=== PATIENT | female | born 1945 | race Caucasian/White ===

== ENCOUNTER 2023-05-27 20:53 | Observation (INO) | payer BC, OTHER ==
[2023-05-27 21:02] VITALS: BMI 26.6
[2023-05-27 22:27] LABS: INR 0.98 (0.83-1.09); PROTHROMBIN TIME (PATIENT) 11.4 SEC (9.7-13.0)
[2023-05-27 22:28] LABS: HEMATOCRIT 35.6 % (32.4-45.2); HEMOGLOBIN 11.5 GM/dL (10.7-15.3); LYMPH % 20.3 % (8-40); MCH 32.7 pg (25.7-33.7); MCHC 32.2 g/dl (32.0-36.0); MEAN CELL VOLUME 101.6 fl (80-96); MEAN PLT VOLUME 12.6 fl (7.5-11.1); MONO % 8.1 % (3.8-10.2); NEUT % 64.6 % (42.8-82.8); PLATELET COUNT 132 10^3/uL (134-434); RBC 3.51 M/mm3 (3.60-5.2); RDW 14.8 % (11.6-15.6); WHITE BLOOD COUNT 6.9 K/mm3 (4.0-10.0)
[2023-05-27 22:29] LABS: ACTIVATED PTT 30.8 SECONDS (25.2-36.5)
[2023-05-27 22:41] LABS: POTASSIUM 4.8 mmol/L (3.5-5.1)
[2023-05-27 22:43] LABS: ALBUMIN 3.3 g/dl (3.4-5.0); BLOOD UREA NITROGEN 29.8 mg/dL (7-18); CALCIUM 8.6 mg/dL (8.5-10.1); MAGNESIUM 2.1 mg/dL (1.8-2.4)
[2023-05-27 22:45] LABS: CREATININE 1.9 mg/dL (0.55-1.3)
[2023-05-27 22:48] LABS: BILIRUBIN,TOTAL 0.4 mg/dL (0.2-1); TOT PROT 8.3 g/dl (6.4-8.2)
[2023-05-27 23:09] LABS: PH,URINE 5.5 (5.0-8.0); URINE APPEARANCE CLEAR; URINE BILIRUBIN NEGATIVE (NEGATIVE); URINE COLOR YELLOW; URINE GLUCOSE (UA) 3+ (NEGATIVE); URINE KETONE NEGATIVE (NEGATIVE); URINE LEUK ESTERASE NEGATIVE (NEGATIVE); URINE NITRITE NEGATIVE (NEGATIVE); URINE PROTEIN NEGATIVE (NEGATIVE); URINE UROBILINOGEN 0.2 mg/dL (0.2-1.0)
[2023-05-28 06:46] LABS: BASO % 0.5 % (0-2.0); EOS % 7.8 % (0-4.5); HEMATOCRIT 33.9 % (32.4-45.2); HEMOGLOBIN 11.1 GM/dL (10.7-15.3); LYMPH % 26.5 % (8-40); MCH 33.1 pg (25.7-33.7); MCHC 32.6 g/dl (32.0-36.0); MEAN CELL VOLUME 101.4 fl (80-96); MEAN PLT VOLUME 11.6 fl (7.5-11.1); MONO % 7.4 % (3.8-10.2); NEUT % 57.8 % (42.8-82.8); PLATELET COUNT 115 10^3/uL (134-434); RBC 3.34 M/mm3 (3.60-5.2); RDW 15.2 % (11.6-15.6); WHITE BLOOD COUNT 5.8 K/mm3 (4.0-10.0)
[2023-05-28 07:10] LABS: POTASSIUM 4.2 mmol/L (3.5-5.1)
[2023-05-28 07:12] LABS: ALBUMIN 3.2 g/dl (3.4-5.0); BLOOD UREA NITROGEN 26.9 mg/dL (7-18); CALCIUM 8.7 mg/dL (8.5-10.1)
[2023-05-28 07:15] LABS: CREATININE 1.8 mg/dL (0.55-1.3)
[2023-05-28 07:16] LABS: BILIRUBIN,TOTAL 0.6 mg/dL (0.2-1); TOT PROT 7.5 g/dl (6.4-8.2)
[2023-05-28] MEDS: LEVOTHYROXINE NA 125 MCG TABLET (FP) PO SCH (08:24)
[2023-05-28] MEDS: INSULIN SLIDING SCALE (NOVOLOG) 1 VIAL SQ SCH ×4 (08:34→22:05)
[2023-05-28] MEDS ORDERED: RAMIPRIL 2.5 MG CAPSULE PO SCH (10:00)
[2023-05-28] MEDS ORDERED: ASPIRIN COATED 81 MG TABLET.EC ONE (10:48)
[2023-05-28] MEDS ORDERED: APIXABAN 5 MG TABLET ONE (10:48)
[2023-05-28] MEDS ORDERED: FOLIC ACID 1 MG TABLET (FP) ONE (10:49)
[2023-05-28] MEDS: APIXABAN 5 MG TABLET PO SCH ×2 (10:55→22:00)
[2023-05-28] MEDS: FOLIC ACID 1 MG TABLET (FP) PO SCH ×2 (10:55→22:00)
[2023-05-28] MEDS: ASPIRIN 81 MG CHEWABLE TABLETS PO SCH (10:55)
[2023-05-28] MEDS: METOPROLOL TARTRATE 25 MG TABLET (FP) PO SCH ×2 (12:15→22:00)
[2023-05-28] MEDS ORDERED: INSULIN (NOVOLOG) ASPART 100 UNITS/ML 10ML VIAL ONE (12:48)
[2023-05-28] MEDS ORDERED: ATORVASTATIN CA 20 MG TABLET (FP) PO SCH (22:00)
[2023-05-28] MEDS ORDERED: INSULIN (LEVEMIR) 100 UNITS/ML UNITS SQ SCH (22:00)
[2023-05-29] MEDS: INSULIN SLIDING SCALE (NOVOLOG) 1 VIAL SQ SCH ×2 (06:14→11:10)
[2023-05-29] MEDS: LEVOTHYROXINE NA 125 MCG TABLET (FP) PO SCH (06:14)
[2023-05-29 08:42] LABS: POTASSIUM 4.2 mmol/L (3.5-5.1)
[2023-05-29 08:45] LABS: BLOOD UREA NITROGEN 30.9 mg/dL (7-18); CALCIUM 8.5 mg/dL (8.5-10.1)
[2023-05-29 08:47] LABS: CREATININE 1.8 mg/dL (0.55-1.3)
[2023-05-29] MEDS: APIXABAN 5 MG TABLET PO SCH (10:02)
[2023-05-29] MEDS: ASPIRIN 81 MG CHEWABLE TABLETS PO SCH (10:02)
[2023-05-29] MEDS: METOPROLOL TARTRATE 25 MG TABLET (FP) PO SCH (10:02)
[2023-05-29] MEDS: FOLIC ACID 1 MG TABLET (FP) PO SCH (10:02)
[2023-05-29] MEDS ORDERED: INSULIN (NOVOLOG) ASPART 100 UNITS/ML 10ML VIAL ONE (11:12)
[2023-05-29 16:26] VITALS: BP 135/63; PULSE 65; RESP 19; TEMP 97.6
== END 2023-05-29 18:49 | disposition home or self-care (01) ==
LOC: JER 20:53 → JERBED 23:26 → J4W 05-28 19:27
PROVIDERS: ADMIT Internal Medicine; ATTEND Family Medicine
PROC: 3E013VG Introduction of Insulin into Subcutaneous Tissue, Percutaneous Approach (ICD-10-PCS; principal; 2023-05-27)
DX: I48.91 Unspecified atrial fibrillation (principal); R00.2 Palpitations; E11.65 Type 2 diabetes mellitus with hyperglycemia; E78.5 Hyperlipidemia, unspecified; E03.9 Hypothyroidism, unspecified; I11.9 Hypertensive heart disease without heart failure; Z95.1 Presence of aortocoronary bypass graft; R77.8 Other specified abnormalities of plasma proteins; N17.9 Acute kidney failure, unspecified; I25.10 Atherosclerotic heart disease of native coronary artery without angina pectoris
CPT/HCPCS: 0241U-QW; 36415; 71045-TC-FY; 76775-TC; 80048; 80053; 80061; 81003; 82962; 83036; 83735; 84439; 84443; 84484; 85025; 85610; 85730; 87086; 93005; 93010; 93306-TC; 93970-TC; 96372; 99285-25; G0378

== ENCOUNTER 2023-08-04 18:26 | Inpatient (IN) | payer OTHER ==
[2023-08-04 20:46] LABS: BASO % 1.8 % (0-2.0); HEMATOCRIT 21.7 % (32.4-45.2); LYMPH % 21.8 % (8-40); MCH 30.8 pg (25.7-33.7); MCHC 31.7 g/dl (32.0-36.0); MEAN CELL VOLUME 97.1 fl (80-96); MEAN PLT VOLUME 11.8 fl (7.5-11.1); MONO % 9.5 % (3.8-10.2); NEUT % 63.9 % (42.8-82.8); PLATELET COUNT 227 10^3/uL (134-434); RBC 2.24 M/mm3 (3.60-5.2); RDW 17.8 % (11.6-15.6); WHITE BLOOD COUNT 8.1 K/mm3 (4.0-10.0)
[2023-08-04 20:51] LABS: HEMOGLOBIN 6.9 GM/dL (10.7-15.3)
[2023-08-04 20:56] LABS: INR 1.74 (0.83-1.09); PROTHROMBIN TIME (PATIENT) 20.1 SEC (9.7-13.0)
[2023-08-04 20:59] LABS: ACTIVATED PTT 30.7 SECONDS (25.2-36.5)
[2023-08-04 21:09] LABS: POTASSIUM 5.3 mmol/L (3.5-5.1)
[2023-08-04 21:11] LABS: CALCIUM 8.2 mg/dL (8.5-10.1)
[2023-08-04 21:12] LABS: ALBUMIN 3.2 g/dl (3.4-5.0); BLOOD UREA NITROGEN 37.6 mg/dL (7-18); MAGNESIUM 2.5 mg/dL (1.8-2.4)
[2023-08-04 21:15] LABS: CREATININE 2.1 mg/dL (0.55-1.3)
[2023-08-04 21:17] LABS: BILIRUBIN,TOTAL 0.3 mg/dL (0.2-1); TOT PROT 7.8 g/dl (6.4-8.2)
[2023-08-04 21:20] LABS: N-TERMINAL BNP 2307.5 pg/ml (5-450)
[2023-08-04 22:16] LABS: CALCIUM 8.2 mg/dL (8.5-10.1); POTASSIUM 4.1 mmol/L (3.5-5.1)
[2023-08-04 22:17] LABS: BLOOD UREA NITROGEN 36.3 mg/dL (7-18); MAGNESIUM 2.4 mg/dL (1.8-2.4)
[2023-08-05] MEDS ORDERED: ARTIFICIAL TEARS (POLYVINYL ALCOHOL) OPTH DROPS OU PRN (03:13)
[2023-08-05] MEDS ORDERED: SODIUM CHLORIDE 1,000 ML IV SCH (03:30)
[2023-08-05 06:33] LABS: BASO % 1.2 % (0-2.0); EOS % 3.5 % (0-4.5); HEMATOCRIT 21.2 % (32.4-45.2); LYMPH % 19.3 % (8-40); MCH 30.6 pg (25.7-33.7); MEAN CELL VOLUME 95.6 fl (80-96); MEAN PLT VOLUME 11.5 fl (7.5-11.1); MONO % 8.8 % (3.8-10.2); NEUT % 67.2 % (42.8-82.8); PLATELET COUNT 170 10^3/uL (134-434); RBC 2.22 M/mm3 (3.60-5.2); RDW 19.1 % (11.6-15.6); WHITE BLOOD COUNT 8.1 K/mm3 (4.0-10.0)
[2023-08-05 06:39] LABS: HEMOGLOBIN 6.8 GM/dL (10.7-15.3)
[2023-08-05] MEDS: LEVOTHYROXINE NA 125 MCG TABLET (FP) PO SCH (06:53)
[2023-08-05 07:17] LABS: CALCIUM 7.7 mg/dL (8.5-10.1)
[2023-08-05 07:18] LABS: BLOOD UREA NITROGEN 40.1 mg/dL (7-18)
[2023-08-05] MEDS ORDERED: PANTOPRAZOLE SODIUM 160 MG in SODIUM CHLORIDE 290 ML IVPB SCH (09:15)
[2023-08-05 09:59] VITALS: BMI 26.5
[2023-08-05] MEDS ORDERED: EMPAGLIFLOZIN (JARDIANCE) 25 MG TABLET PO SCH (10:00)
[2023-08-05] MEDS: PANTOPRAZOLE SODIUM 160 MG in SODIUM CHLORIDE 290 ML IVPB SCH (10:50)
[2023-08-05] MEDS: METOPROLOL TARTRATE 25 MG TABLET (FP) PO SCH ×2 (10:50→22:05)
[2023-08-05 13:10] LABS: BASO % 1.5 % (0-2.0); EOS % 2.9 % (0-4.5); HEMATOCRIT 27.2 % (32.4-45.2); HEMOGLOBIN 8.6 GM/dL (10.7-15.3); MCH 29.6 pg (25.7-33.7); MCHC 31.8 g/dl (32.0-36.0); MEAN PLT VOLUME 11.3 fl (7.5-11.1); MONO % 8.8 % (3.8-10.2); NEUT % 68.8 % (42.8-82.8); PLATELET COUNT 179 10^3/uL (134-434); RBC 2.93 M/mm3 (3.60-5.2); RDW 19.7 % (11.6-15.6); WHITE BLOOD COUNT 7.6 K/mm3 (4.0-10.0)
[2023-08-05] MEDS: INSULIN (NOVOLOG) ASPART 100 UNITS/ML 10ML VIAL SQ SCH ×2 (17:34→22:08)
[2023-08-06] MEDS: INSULIN (NOVOLOG) ASPART 100 UNITS/ML 10ML VIAL SQ SCH ×2 (06:19→11:53)
[2023-08-06] MEDS: LEVOTHYROXINE NA 125 MCG TABLET (FP) PO SCH (06:19)
[2023-08-06] MEDS: PANTOPRAZOLE SODIUM 160 MG in SODIUM CHLORIDE 290 ML IVPB SCH (06:19)
[2023-08-06 07:45] LABS: BASO % 1.4 % (0-2.0); EOS % 5.3 % (0-4.5); HEMATOCRIT 24.7 % (32.4-45.2); HEMOGLOBIN 7.9 GM/dL (10.7-15.3); LYMPH % 18.1 % (8-40); MCH 29.7 pg (25.7-33.7); MCHC 31.9 g/dl (32.0-36.0); MEAN CELL VOLUME 93.2 fl (80-96); MEAN PLT VOLUME 11.1 fl (7.5-11.1); MONO % 8.3 % (3.8-10.2); NEUT % 66.9 % (42.8-82.8); PLATELET COUNT 164 10^3/uL (134-434); RBC 2.65 M/mm3 (3.60-5.2); RDW 19.4 % (11.6-15.6); WHITE BLOOD COUNT 6.4 K/mm3 (4.0-10.0)
[2023-08-06 08:04] LABS: POTASSIUM 4.3 mmol/L (3.5-5.1)
[2023-08-06 08:12] LABS: TOT PROT 6.5 g/dl (6.4-8.2)
[2023-08-06 08:13] LABS: CALCIUM 8.2 mg/dL (8.5-10.1)
[2023-08-06 08:14] LABS: ALBUMIN 2.8 g/dl (3.4-5.0); BLOOD UREA NITROGEN 28.7 mg/dL (7-18); CREATININE 1.7 mg/dL (0.55-1.3)
[2023-08-06] MEDS ORDERED: FUROSEMIDE 40 MG/4 ML INJECTABLE VIAL IVPUSH ONE (08:14)
[2023-08-06 08:16] LABS: BILIRUBIN,TOTAL 0.8 mg/dL (0.2-1)
[2023-08-06 09:31] VITALS: RESP 18
[2023-08-06] MEDS ORDERED: IRON SUCROSE INJECTION 200 MG in SODIUM CHLORIDE 100 ML IVPB ONE (10:04)
[2023-08-06] MEDS ORDERED: FUROSEMIDE 40 MG/4 ML INJECTABLE VIAL ONE (10:53)
[2023-08-06] MEDS: METOPROLOL TARTRATE 25 MG TABLET (FP) PO SCH (10:55)
[2023-08-06 15:08] VITALS: BP 103/41; PULSE 57; TEMP 98
[2023-08-06] MEDS ORDERED: PANTOPRAZOLE 40 MG TABLET PO SCH (22:00)
[2023-08-07] MEDS ORDERED: ASCORBIC ACID 500 MG TABLET (FP) PO SCH (10:00)
[2023-08-07] MEDS ORDERED: FERROUS SO4 325 MG TABLET (FP) PO SCH (10:00)
[2023-08-07] MEDS ORDERED: POLYETHYLENE GLYCOL (HEALTHYLAX) 3350 17 GM PACKET PO SCH (10:00)
== END 2023-08-06 17:30 | disposition home or self-care (01) | DRG 813 ==
LOC: JER 18:26 → JERBED 23:10 → J4W 08-05 07:50 → OBSVTOIN 08-05 09:21
PROVIDERS: ADMIT Internal Medicine; ATTEND Family Medicine
PROC: 30233N1 Transfusion of Nonautologous Red Blood Cells into Peripheral Vein, Percutaneous Approach (ICD-10-PCS; principal; 2023-08-04)
PROC: 0DJ08ZZ Inspection of Upper Intestinal Tract, Via Natural or Artificial Opening Endoscopic (ICD-10-PCS; 2023-08-06)
DX: D68.32 Hemorrhagic disorder due to extrinsic circulating anticoagulants (principal); K92.2 Gastrointestinal hemorrhage, unspecified; N17.9 Acute kidney failure, unspecified; D62 Acute posthemorrhagic anemia; T39.015A Adverse effect of aspirin, initial encounter; I25.119 Atherosclerotic heart disease of native coronary artery with unspecified angina pectoris; I48.0 Paroxysmal atrial fibrillation; E78.5 Hyperlipidemia, unspecified; E03.9 Hypothyroidism, unspecified; I12.9 Hypertensive chronic kidney disease with stage 1 through stage 4 chronic kidney disease, or unspecified chronic kidney disease; E11.22 Type 2 diabetes mellitus with diabetic chronic kidney disease; N18.9 Chronic kidney disease, unspecified; I65.29 Occlusion and stenosis of unspecified carotid artery; Z95.1 Presence of aortocoronary bypass graft; Z79.01 Long term (current) use of anticoagulants; Z95.5 Presence of coronary angioplasty implant and graft
CPT/HCPCS: 36415; 36430; 71045-TC-FY; 80048; 80053; 82272; 82550; 82607; 82728; 82746; 82784; 82962; 83540; 83550; 83735; 83880; 84155; 84165; 84484; 85025; 85045; 85610; 85730; 86140; 86334; 86900; 86922; 93005; 93010; 99285-25; G0378; J1756; P9058

== ENCOUNTER 2023-08-27 04:07 | Day surgery (SDC) | payer OTHER ==
[2023-08-26 12:05] VITALS: BMI 26.6
[2023-08-27 08:48] VITALS: TEMP 98.4
[2023-08-27 09:29] VITALS: BP 130/70; PULSE 106; RESP 23
== END 2023-08-27 09:45 | disposition home or self-care (01) ==
LOC: JASU-ENDO 04:07
PROVIDERS: ATTEND Internal Medicine Gastroenterology
PROC: 0DB98ZX Excision of Duodenum, Via Natural or Artificial Opening Endoscopic, Diagnostic (ICD-10-PCS; 2023-08-27)
PROC: 0DB68ZX Excision of Stomach, Via Natural or Artificial Opening Endoscopic, Diagnostic (ICD-10-PCS; 2023-08-27)
PROC: 0DJD8ZZ Inspection of Lower Intestinal Tract, Via Natural or Artificial Opening Endoscopic (ICD-10-PCS; principal; 2023-08-27 08:00)
DX: Z12.11 Encounter for screening for malignant neoplasm of colon (principal); K57.30 Diverticulosis of large intestine without perforation or abscess without bleeding; K55.20 Angiodysplasia of colon without hemorrhage; K64.8 Other hemorrhoids; K29.50 Unspecified chronic gastritis without bleeding
CPT/HCPCS: 43239; G0121; 82962

== ENCOUNTER 2024-09-27 23:39 | Inpatient (IN) | payer OTHER ==
[2024-09-27 23:48] VITALS: BMI 28.9
[2024-09-28 00:56] LABS: BASO % 1.3 % (0-2.0); HEMATOCRIT 31.7 % (32.4-45.2); HEMOGLOBIN 10.6 GM/dL (10.7-15.3); LYMPH % 6.7 % (8-40); MCH 35.5 pg (25.7-33.7); MCHC 33.4 g/dl (32.0-36.0); MEAN CELL VOLUME 106.3 fl (80-96); MONO % 8.9 % (3.8-10.2); NEUT % 79.1 % (42.8-82.8); PLATELET COUNT 97 10^3/uL (134-434); RBC 2.98 M/mm3 (3.60-5.2); RDW 17.9 % (11.6-15.6); WHITE BLOOD COUNT 6.2 K/mm3 (4.0-10.0)
[2024-09-28 01:03] LABS: INR 1.26 (0.83-1.09); PROTHROMBIN TIME (PATIENT) 14.4 SEC (9.7-13.0)
[2024-09-28 01:06] LABS: ACTIVATED PTT 36.1 SECONDS (25.2-36.5)
[2024-09-28 01:14] LABS: BLOOD UREA NITROGEN 25.8 mg/dL (7-18); CALCIUM 8.7 mg/dL (8.5-10.1)
[2024-09-28 01:15] LABS: ALBUMIN 2.9 g/dl (3.4-5.0)
[2024-09-28 01:19] LABS: BILIRUBIN,TOTAL 1.4 mg/dL (0.2-1); TOT PROT 7.8 g/dl (6.4-8.2)
[2024-09-28] MEDS ORDERED: FUROSEMIDE 40 MG/4 ML INJECTABLE VIAL ONE (01:30)
[2024-09-28] MEDS: FUROSEMIDE 40 MG/4 ML INJECTABLE VIAL IVPUSH ONE (01:41)
[2024-09-28] MEDS ORDERED: DEXAMETHASONE SOD PHOSPHATE 10 MG/1 ML VIAL ONE (02:30)
[2024-09-28 02:48] LABS: ANISOCYTOSIS 1+; MACROCYTOSIS 2+
[2024-09-28] MEDS: DEXAMETHASONE SOD PHOSPHATE 10 MG/1 ML VIAL IVPUSH ONE (02:53)
[2024-09-28] MEDS ORDERED: CEFTRIAXONE 1 G/50 ML PREMIX 50 ML IVPB ONE (02:56)
[2024-09-28] MEDS ORDERED: AZITHROMYCIN IVPB 500 MG/250 ML BAG IVPB ONE (02:57)
[2024-09-28] MEDS: CEFTRIAXONE 1 G/50 ML PREMIX 50 ML IVPB ONE (03:08)
[2024-09-28] MEDS: AZITHROMYCIN IVPB 500 MG/250 ML BAG IVPB ONE (03:23)
[2024-09-28 04:34] LABS: EPI CELLS 5 /uL (0-25.1); HYALINE CASTS 0 /uL (0-3.1); URINE APPEARANCE CLEAR; URINE BACTERIA 26 /uL (0-1359); URINE BILIRUBIN NEGATIVE (NEGATIVE); URINE COLOR YELLOW; URINE GLUCOSE (UA) 3+ (NEGATIVE); URINE KETONE NEGATIVE (NEGATIVE); URINE LEUK ESTERASE NEGATIVE (NEGATIVE); URINE NITRITE NEGATIVE (NEGATIVE); URINE PROTEIN NEGATIVE (NEGATIVE); URINE RBC 8 /uL (0-23.9); URINE UROBILINOGEN 0.2 mg/dL (0.2-1.0); URINE WBC 10 /uL (0-25.8)
[2024-09-28] MEDS: REMDESIVIR 200 MG in SODIUM CHLORIDE 250 ML IVPB ONE (05:39)
[2024-09-28] MEDS: INSULIN ASPART SLIDING SCALE (NOVOLOG) 1 VIAL SQ SCH (06:49)
[2024-09-28] MEDS ORDERED: LEVOTHYROXINE NA 100 MCG TABLET (FP) ONE (06:50)
[2024-09-28] MEDS ORDERED: LEVOTHYROXINE NA 25 MCG TABLET (FP) ONE (06:51)
[2024-09-28] MEDS: LEVOTHYROXINE NA 125 MCG TABLET (FP) PO SCH (06:57)
[2024-09-28] MEDS ORDERED: LEVOTHYROXINE NA 112 MCG TABLET (FP) PO SCH (07:00)
[2024-09-28 08:15] LABS: BASO % 2.1 % (0-2.0); EOS % 1.7 % (0-4.5); HEMATOCRIT 29.1 % (32.4-45.2); HEMOGLOBIN 9.8 GM/dL (10.7-15.3); LYMPH % 5.4 % (8-40); MCH 35.6 pg (25.7-33.7); MCHC 33.5 g/dl (32.0-36.0); MEAN CELL VOLUME 106.1 fl (80-96); MEAN PLT VOLUME 10.7 fl (7.5-11.1); MONO % 4.2 % (3.8-10.2); NEUT % 86.6 % (42.8-82.8); PLATELET COUNT 82 10^3/uL (134-434); RBC 2.74 M/mm3 (3.60-5.2); RDW 17.8 % (11.6-15.6); WHITE BLOOD COUNT 4.5 K/mm3 (4.0-10.0)
[2024-09-28 08:50] LABS: MAGNESIUM 1.8 mg/dL (1.8-2.4)
[2024-09-28 09:59] LABS: ALBUMIN 2.6 g/dl (3.4-5.0); BILIRUBIN,TOTAL 1.4 mg/dL (0.2-1); BLOOD UREA NITROGEN 25.8 mg/dL (7-18); CALCIUM 8.3 mg/dL (8.5-10.1); CREATININE 1.9 mg/dL (0.55-1.3); POTASSIUM 3.8 mmol/L (3.5-5.1); TOT PROT 7.2 g/dl (6.4-8.2)
[2024-09-28] MEDS: FENOFIBRIC ACID 135 MG CAP PO SCH (12:11)
[2024-09-28] MEDS: ASPIRIN 81 MG CHEWABLE TABLETS PO SCH (12:11)
[2024-09-28] MEDS: FOLIC ACID 1 MG TABLET (FP) PO SCH (12:11)
[2024-09-28] MEDS ORDERED: METOPROLOL TARTRATE 25 MG TABLET (FP) ONE (12:27)
[2024-09-28] MEDS: METOPROLOL TARTRATE 25 MG TABLET (FP) PO SCH (12:29)
[2024-09-28] MEDS ORDERED: INSULIN ASPART SLIDING SCALE (NOVOLOG) 1 VIAL SQ ONE (13:09)
[2024-09-28] MEDS: ATORVASTATIN CA 20 MG TABLET (FP) PO SCH (22:09)
[2024-09-28] MEDS: REMDESIVIR 100 MG in SODIUM CHLORIDE 270 ML IVPB ONE (23:22)
[2024-09-28] MEDS: INSULIN (LEVEMIR) 100 UNITS/ML UNITS SQ SCH (23:44)
[2024-09-29] MEDS ORDERED: REMDESIVIR 100 MG in SODIUM CHLORIDE 270 ML IVPB ONE (06:00)
[2024-09-29] MEDS ORDERED: INSULIN (LEVEMIR) 100 UNITS/ML UNITS SQ ONE (06:47)
[2024-09-29 07:08] LABS: BASO % 2.3 % (0-2.0); EOS % 4.6 % (0-4.5); HEMATOCRIT 29.7 % (32.4-45.2); HEMOGLOBIN 9.9 GM/dL (10.7-15.3); LYMPH % 14.8 % (8-40); MCH 35.8 pg (25.7-33.7); MCHC 33.5 g/dl (32.0-36.0); MEAN CELL VOLUME 106.9 fl (80-96); MEAN PLT VOLUME 10.8 fl (7.5-11.1); MONO % 12.2 % (3.8-10.2); NEUT % 66.1 % (42.8-82.8); PLATELET COUNT 82 10^3/uL (134-434); RBC 2.77 M/mm3 (3.60-5.2); RDW 18.4 % (11.6-15.6); WHITE BLOOD COUNT 5.1 K/mm3 (4.0-10.0)
[2024-09-29 07:27] LABS: POTASSIUM 3.5 mmol/L (3.5-5.1)
[2024-09-29 07:30] LABS: ALBUMIN 2.5 g/dl (3.4-5.0); BLOOD UREA NITROGEN 32.3 mg/dL (7-18)
[2024-09-29 07:34] LABS: BILIRUBIN,TOTAL 0.7 mg/dL (0.2-1); TOT PROT 7.1 g/dl (6.4-8.2)
[2024-09-29] MEDS: DEXAMETHASONE SOD PHOSPHATE 10 MG/1 ML VIAL IVPUSH SCH (10:04)
[2024-09-29] MEDS: EMPAGLIFLOZIN (JARDIANCE) 25 MG TABLET PO SCH (10:05)
[2024-09-29] MEDS: REMDESIVIR 100 MG in SODIUM CHLORIDE 250 ML IVPB SCH (10:06)
[2024-09-29] MEDS: AZITHROMYCIN IVPB 500 MG/250 ML BAG IVPB SCH (10:06)
[2024-09-29] MEDS: CEFTRIAXONE 1 G/50 ML PREMIX 50 ML IVPB SCH (10:31)
[2024-09-29] MEDS: CEFTRIAXONE 1 GM in DEXTROSE 5%-WATER - 50 ML IVPB SCH (12:06)
[2024-09-30] MEDS: EMPAGLIFLOZIN (JARDIANCE) 25 MG TABLET PO SCH (06:12)
[2024-09-30 08:53] LABS: BASO % 1.2 % (0-2.0); EOS % 0.9 % (0-4.5); HEMATOCRIT 29.5 % (32.4-45.2); HEMOGLOBIN 9.7 GM/dL (10.7-15.3); LYMPH % 14.6 % (8-40); MCH 35.3 pg (25.7-33.7); MEAN CELL VOLUME 107.1 fl (80-96); MEAN PLT VOLUME 11.7 fl (7.5-11.1); MONO % 11.2 % (3.8-10.2); NEUT % 72.1 % (42.8-82.8); PLATELET COUNT 85 10^3/uL (134-434); RBC 2.76 M/mm3 (3.60-5.2); RDW 18.3 % (11.6-15.6); WHITE BLOOD COUNT 4.8 K/mm3 (4.0-10.0)
[2024-09-30 09:13] LABS: POTASSIUM 3.7 mmol/L (3.5-5.1)
[2024-09-30 09:23] LABS: ALBUMIN 2.5 g/dl (3.4-5.0); BLOOD UREA NITROGEN 35.3 mg/dL (7-18); CALCIUM 8.2 mg/dL (8.5-10.1)
[2024-09-30 09:26] LABS: CREATININE 1.8 mg/dL (0.55-1.3)
[2024-09-30 09:27] LABS: BILIRUBIN,TOTAL 0.8 mg/dL (0.2-1)
[2024-09-30] MEDS: PANTOPRAZOLE 40 MG TABLET PO SCH (10:27)
[2024-09-30] MEDS: FUROSEMIDE 40 MG TABLET (FP) PO ONE (18:31)
[2024-10-01] MEDS: FUROSEMIDE 40 MG TABLET (FP) PO SCH (16:10)
[2024-10-02 07:16] LABS: BASO % 0.4 % (0-2.0); EOS % 0.6 % (0-4.5); HEMATOCRIT 29.4 % (32.4-45.2); HEMOGLOBIN 9.7 GM/dL (10.7-15.3); LYMPH % 13.2 % (8-40); MCH 35.3 pg (25.7-33.7); MEAN CELL VOLUME 107.1 fl (80-96); MEAN PLT VOLUME 11.2 fl (7.5-11.1); MONO % 9.6 % (3.8-10.2); NEUT % 76.2 % (42.8-82.8); PLATELET COUNT 86 10^3/uL (134-434); RBC 2.74 M/mm3 (3.60-5.2); RDW 17.9 % (11.6-15.6); WHITE BLOOD COUNT 6.3 K/mm3 (4.0-10.0)
[2024-10-02 07:29] LABS: POTASSIUM 3.6 mmol/L (3.5-5.1)
[2024-10-02 07:34] LABS: ALBUMIN 2.4 g/dl (3.4-5.0); BLOOD UREA NITROGEN 42.3 mg/dL (7-18); CALCIUM 8.3 mg/dL (8.5-10.1)
[2024-10-02 07:38] LABS: CREATININE 1.9 mg/dL (0.55-1.3)
[2024-10-02 07:39] LABS: BILIRUBIN,TOTAL 0.6 mg/dL (0.2-1); TOT PROT 6.8 g/dl (6.4-8.2)
[2024-10-02 10:11] LABS: ANISOCYTOSIS 0; MACROCYTOSIS 2+; OVALOCYTE 1+; TARGET CELLS 0
[2024-10-03] MEDS ORDERED: INSULIN ASPART SLIDING SCALE (NOVOLOG) 1 VIAL SQ ONE (06:06)
[2024-10-03] MEDS ORDERED: DEXTROSE 50%-WATER 25 GM/50 ML DISP.SYRIN ONE ×2 (06:17→06:52)
[2024-10-03 08:21] LABS: BASO % 0.8 % (0-2.0); EOS % 8.4 % (0-4.5); HEMATOCRIT 34.1 % (32.4-45.2); HEMOGLOBIN 11.2 GM/dL (10.7-15.3); MCH 35.3 pg (25.7-33.7); MCHC 32.8 g/dl (32.0-36.0); MEAN CELL VOLUME 107.6 fl (80-96); MONO % 11.7 % (3.8-10.2); NEUT % 56.1 % (42.8-82.8); PLATELET COUNT 100 10^3/uL (134-434); RBC 3.17 M/mm3 (3.60-5.2); RDW 18.5 % (11.6-15.6); WHITE BLOOD COUNT 7.5 K/mm3 (4.0-10.0)
[2024-10-03 08:37] LABS: POTASSIUM 4.1 mmol/L (3.5-5.1)
[2024-10-03 08:47] LABS: CALCIUM 8.6 mg/dL (8.5-10.1)
[2024-10-03 08:48] LABS: ALBUMIN 2.5 g/dl (3.4-5.0); BLOOD UREA NITROGEN 41.2 mg/dL (7-18)
[2024-10-03 08:51] LABS: CREATININE 2.1 mg/dL (0.55-1.3)
[2024-10-03 08:52] LABS: BILIRUBIN,TOTAL 0.6 mg/dL (0.2-1)
[2024-10-03 08:53] LABS: TOT PROT 7.1 g/dl (6.4-8.2)
[2024-10-04] MEDS ORDERED: INSULIN ASPART SLIDING SCALE (NOVOLOG) 1 VIAL SQ ONE (06:04)
[2024-10-04] MEDS ORDERED: INSULIN (LEVEMIR) 100 UNITS/ML UNITS SQ ONE (06:57)
[2024-10-04 09:02] LABS: BASO % 0.7 % (0-2.0); EOS % 10.2 % (0-4.5); HEMATOCRIT 34.2 % (32.4-45.2); HEMOGLOBIN 11.1 GM/dL (10.7-15.3); LYMPH % 18.7 % (8-40); MCH 34.7 pg (25.7-33.7); MCHC 32.6 g/dl (32.0-36.0); MEAN CELL VOLUME 106.5 fl (80-96); MEAN PLT VOLUME 11.8 fl (7.5-11.1); MONO % 11.6 % (3.8-10.2); NEUT % 58.8 % (42.8-82.8); PLATELET COUNT 108 10^3/uL (134-434); RBC 3.21 M/mm3 (3.60-5.2); RDW 17.6 % (11.6-15.6); WHITE BLOOD COUNT 7.1 K/mm3 (4.0-10.0)
[2024-10-04 09:15] LABS: CALCIUM 8.7 mg/dL (8.5-10.1)
[2024-10-04 09:16] LABS: ALBUMIN 2.5 g/dl (3.4-5.0); BLOOD UREA NITROGEN 37.7 mg/dL (7-18)
[2024-10-04 09:19] LABS: CREATININE 1.9 mg/dL (0.55-1.3)
[2024-10-04 09:20] LABS: BILIRUBIN,TOTAL 0.9 mg/dL (0.2-1); TOT PROT 7.2 g/dl (6.4-8.2)
[2024-10-04 10:06] VITALS: RESP 15
[2024-10-04 14:48] VITALS: BP 120/56; PULSE 63; TEMP 98.1
== END 2024-10-04 17:20 | disposition home or self-care (01) | DRG 177 ==
LOC: JER 23:39 → JERBED 09-28 01:23 → J4S 09-28 17:02
PROVIDERS: ADMIT Internal Medicine; ATTEND Family Medicine
PROC: XW033E5 Introduction of Remdesivir Anti-infective into Peripheral Vein, Percutaneous Approach, New Technology Group 5 (ICD-10-PCS; principal; 2024-09-28)
DX: U07.1 COVID-19 (principal); J12.82 Pneumonia due to coronavirus disease 2019; I48.92 Unspecified atrial flutter; I24.89 Other forms of acute ischemic heart disease; I13.0 Hypertensive heart and chronic kidney disease with heart failure and stage 1 through stage 4 chronic kidney disease, or unspecified chronic kidney disease; I50.32 Chronic diastolic (congestive) heart failure; D69.6 Thrombocytopenia, unspecified; I25.10 Atherosclerotic heart disease of native coronary artery without angina pectoris; E78.5 Hyperlipidemia, unspecified; Z95.5 Presence of coronary angioplasty implant and graft; I27.20 Pulmonary hypertension, unspecified; I07.1 Rheumatic tricuspid insufficiency; I48.0 Paroxysmal atrial fibrillation; E03.9 Hypothyroidism, unspecified; E11.22 Type 2 diabetes mellitus with diabetic chronic kidney disease; N18.9 Chronic kidney disease, unspecified; R79.89 Other specified abnormal findings of blood chemistry; D64.9 Anemia, unspecified; K76.0 Fatty (change of) liver, not elsewhere classified
CPT/HCPCS: 0241U-QW; 36415; 71045-TC-FY; 80053; 80061; 81003; 82550; 82728; 82962; 83036; 83540; 83550; 83735; 83880; 84443; 84466; 84484; 85025; 85610; 85730; 86704; 86708; 86803; 87040; 87086; 87340; 87517; 87899; 93005; 93010; 93308; 93970-TC; 99285-25; J0248; J1100

== ENCOUNTER 2025-03-13 15:34 | Observation (INO) | payer OTHER ==
[2025-03-13 16:12] VITALS: RESP 18; BMI 23.7
[2025-03-13 16:45] LABS: ABSOLUTE IMMATURE GRANULOCYTES 0.03 x10^3/uL (0.0-0.031); RDW 15.9 % (12.4-16.6)
[2025-03-13 16:46] LABS: BASOPHILS # 0.07 x10^3/uL (0.01-0.08); EOSINOPHIL % 3.1 % (0.7-5.8); EOSINOPHILS # 0.20 x10^3/uL (0.04-0.36); IMMATURE PLATELET FRACTION # 17.30 x10^3/uL; MCHC 33.3 g/dl (32.2-35.5); MEAN CELL VOLUME 105.3 fl (79.4-94.8); MEAN PLT VOLUME 13.8 fl (9.4-12.3); MONOCYTE # 0.90 x10^3/uL (0.24-0.86); MONOCYTE % 13.9 % (4.7-12.5)
[2025-03-13 16:58] LABS: INR 1.19 (0.83-1.09); PROTHROMBIN TIME (PATIENT) 13.1 SEC (9.7-13.0)
[2025-03-13 17:01] LABS: ACTIVATED PTT 30.9 SECONDS (25.2-36.5)
[2025-03-13 17:10] LABS: CO2 33 mmol/L (21-32)
[2025-03-13 17:11] LABS: GLUCOSE,RANDOM 341 mg/dL (74-106)
[2025-03-13 17:14] LABS: CREATININE 2.7 mg/dL (0.55-1.3); SGOT/AST 60 U/L (15-37); SGPT/ALT 35 U/L (13-61)
[2025-03-13 17:15] LABS: TOT PROT 8.9 g/dl (6.4-8.2)
[2025-03-13 17:16] LABS: ALK PHOS 90 U/L (45-117); N-TERMINAL BNP 1822.2 pg/ml (5-450)
[2025-03-13] MEDS ORDERED: POTASSIUM CHLORIDE ORAL LIQUID 20 MEQ/15 ML ONE (17:45)
[2025-03-13] MEDS: POTASSIUM CHLORIDE ORAL LIQUID 20 MEQ/15 ML PO ONE (17:46)
[2025-03-13] MEDS ORDERED: KCL 10 MEQ IVPB 10 MEQ/100 ML INFUS.BAG IVPB ONE ×3 (17:51→20:52)
[2025-03-13] MEDS: KCL 10 MEQ IVPB 10 MEQ/100 ML INFUS.BAG IVPB SCH (17:53)
[2025-03-13 19:55] LABS: BG HCT 36.0 % (32.4-45.2); VENOUS BASE EXCESS 9.5 mmol/L (-2-2); VENOUS O2 SATURATION 97.8 % (70-80); VENOUS PCO2 39.4 mmHg (38-52); VENOUS PH 7.538 (7.310-7.410)
[2025-03-14] MEDS: LEVOTHYROXINE NA 125 MCG TABLET (FP) PO SCH (07:22)
[2025-03-14 07:58] LABS: ABSOLUTE IMMATURE GRANULOCYTES 0.03 x10^3/uL (0.0-0.031); EOSINOPHILS # 0.37 x10^3/uL (0.04-0.36)
[2025-03-14 08:00] LABS: BASOPHILS # 0.09 x10^3/uL (0.01-0.08); EOSINOPHIL % 6.4 % (0.7-5.8); IMMATURE PLATELET FRACTION # 16.70 x10^3/uL; MCHC 32.6 g/dl (32.2-35.5); MEAN CELL VOLUME 106.2 fl (79.4-94.8); MEAN PLT VOLUME 14.3 fl (9.4-12.3); MONOCYTE # 0.77 x10^3/uL (0.24-0.86); MONOCYTE % 13.2 % (4.7-12.5); RDW 15.9 % (12.4-16.6)
[2025-03-14 08:32] LABS: CO2 32 mmol/L (21-32)
[2025-03-14 08:33] LABS: GLUCOSE,RANDOM 245 mg/dL (74-106)
[2025-03-14 08:36] LABS: CREATININE 2.4 mg/dL (0.55-1.3)
[2025-03-14] MEDS ORDERED: LEVOTHYROXINE NA 112 MCG TABLET (FP) PO SCH (10:00)
[2025-03-14] MEDS: SODIUM CHLORIDE 0.9%/KCL 20 MEQ/1,000 ML INFUS.BAG IV SCH (10:30)
[2025-03-14] MEDS: KCL 10 MEQ IVPB 10 MEQ/100 ML INFUS.BAG IVPB SCH ×2 (10:30→14:36)
[2025-03-14] MEDS: POTASSIUM CHLORIDE ORAL LIQUID 20 MEQ/15 ML PO SCH (10:33)
[2025-03-14] MEDS: FOLIC ACID 1 MG TABLET (FP) PO SCH (10:33)
[2025-03-14] MEDS: MIDODRINE HCL 5 MG TABLET PO SCH ×2 (10:33→17:07)
[2025-03-14] MEDS: METOPROLOL TARTRATE 25 MG TABLET (FP) PO SCH (10:33)
[2025-03-14] MEDS: ASPIRIN 81 MG CHEWABLE TABLETS PO SCH (10:33)
[2025-03-14] MEDS: INSULIN ASPART SLIDING SCALE (NOVOLOG) 1 VIAL SQ SCH (12:25)
[2025-03-14] MEDS: ATORVASTATIN CA 20 MG TABLET (FP) PO SCH (22:06)
[2025-03-15 07:41] LABS: CO2 30.0 mmol/L (21-32); GLUCOSE,RANDOM 220.0 mg/dL (74-106)
[2025-03-15 07:44] LABS: CREATININE 1.9 mg/dL (0.55-1.3); SGOT/AST 62.0 U/L (15-37); SGPT/ALT 36.0 U/L (13-61)
[2025-03-15 07:46] LABS: TOT PROT 6.9 g/dl (6.4-8.2)
[2025-03-15 07:47] LABS: ALK PHOS 118.0 U/L (45-117)
[2025-03-15 13:09] VITALS: BP 118/57; PULSE 74; TEMP 97.7
== END 2025-03-15 14:48 | disposition home or self-care (01) ==
LOC: JER 15:34 → JERBED 18:02 → J4W 03-14 00:23
PROVIDERS: ADMIT Family Medicine; ATTEND Family Medicine
PROC: 3E013VG Introduction of Insulin into Subcutaneous Tissue, Percutaneous Approach (ICD-10-PCS; principal; 2025-03-13)
PROC: 3E033GC Introduction of Other Therapeutic Substance into Peripheral Vein, Percutaneous Approach (ICD-10-PCS; 2025-03-13)
PROC: 3E0337Z Introduction of Electrolytic and Water Balance Substance into Peripheral Vein, Percutaneous Approach (ICD-10-PCS; 2025-03-13)
DX: I11.0 Hypertensive heart disease with heart failure (principal); N18.9 Chronic kidney disease, unspecified; I50.30 Unspecified diastolic (congestive) heart failure; I48.0 Paroxysmal atrial fibrillation; E03.9 Hypothyroidism, unspecified; E11.9 Type 2 diabetes mellitus without complications; E78.5 Hyperlipidemia, unspecified; I65.21 Occlusion and stenosis of right carotid artery; Z95.9 Presence of cardiac and vascular implant and graft, unspecified; K76.0 Fatty (change of) liver, not elsewhere classified; Z95.5 Presence of coronary angioplasty implant and graft; Z95.1 Presence of aortocoronary bypass graft; R79.89 Other specified abnormal findings of blood chemistry
CPT/HCPCS: 36415; 71045-TC-FY; 80048; 80053; 82803; 82962; 83735; 83880; 84484; 85025; 85379; 85610; 85730; 93005; 93010; 96361; 96365; 96366; 96372; 97116-GP; 97161-GP; 99285-25; G0378